=== PATIENT | female | born 1980 | race Hispanic/Latino ===

== ENCOUNTER 2023-01-15 14:20 | Emergency (ER) | payer MEDICARE, OTHER ==
[~2023-01-15] VITALS: Ht 152.4 cm; Wt 104.6 kg
[2023-01-15] MEDS ORDERED: REMICADE100 MG/VIA (14:46)
[2023-01-15 15:35] VITALS: O2SAT 97
[2023-01-15] MEDS ORDERED: PROAIR DIGIHAL90 MCG INH (15:38)
[2023-01-15] MEDS ORDERED: BENZONATATE100 MG PO (15:38)
[2023-01-15] MEDS ORDERED: ZYRTEC10 MG PO (15:38)
[2023-01-15] MEDS ORDERED: MUCINEX DM ER1 EAC1 PO (15:38)
== END 2023-01-15 15:53 | disposition home or self-care (01) ==
LOC: FSED 14:23
DX: R05.9 Cough, unspecified (principal); J20.9 Acute bronchitis, unspecified; J45.909 Unspecified asthma, uncomplicated; M06.9 Rheumatoid arthritis, unspecified
CPT/HCPCS: 71046; 99283

== ENCOUNTER 2025-04-28 08:28 | Emergency (ER) | payer MEDICARE, OTHER ==
[~2025-04-28] VITALS: Ht 152.4 cm; Wt 90.7 kg
[~2025-04-28 08:28] MED LIST: BENZONATATE100 MG PO; MUCINEX DM ER1 EAC1 PO; PROAIR DIGIHAL90 MCG INH; REMICADE100 MG/VIA; ZYRTEC10 MG PO
[2025-04-28 08:35] VITALS: PULSE 80; RESP 16; TEMP 97.9; O2SAT 96
[2025-04-28] MEDS ORDERED: IBUPROFEN600 MG PO (08:57)
[2025-04-28] MEDS ORDERED: PREDNISONE20 MG PO (08:57)
[2025-04-28] MEDS ORDERED: ZANAFLEX4 MG PO (08:57)
[2025-04-28] MEDS: PREDNISONE 20 MG TAB PO ONE (09:08)
[2025-04-28] MEDS: ONDANSETRON HCL 4 MG ORAL DISINTEGRATING TAB PO ONE (09:08)
[2025-04-28] MEDS: ACETAMINOPHEN 325 MG TAB PO ONE (09:08)
[2025-04-28] MEDS: KETOROLAC TROMETHAMINE 30 MG/ML VIAL IM ONE (09:09)
== END 2025-04-28 09:19 | disposition home or self-care (01) ==
LOC: FSED 08:49
DX: M54.41 Lumbago with sciatica, right side (principal); M06.9 Rheumatoid arthritis, unspecified
CPT/HCPCS: 99284; J1885; J7512; Q0162